=== PATIENT | female | born 1985 | race American Indian/Alaskan Native ===

== ENCOUNTER 2021-08-15 16:20 | Emergency (ER) | payer OTHER ==
--- NOTE | 2021-08-15 17:05 | Emergency Department Report ---
- General Stated Complaint: PG WITH FLU SX Time Seen by Provider: 08/15/21 17:02 - History of Present Illness Initial Comments: Patient presents with respiratory symptoms including cough congestion. She has had nasal congestion and cough. She has had subjective fevers. This is present for 1 day. Patient came in because she did not know what she could take because she is . She is 14 weeks gestation. She has had no problems with vaginal bleeding or spotting. She has no trauma. She has had no sick contacts. She has had no muscle aches or body aches. She states that she is just here because of nasal congestion. - Related Data Previous Rx's Medication Instructions Recorded Last Taken Type Ondansetron [Zofran ODT TAB] 8 mg PO Q8HR PRN #20 tab.rapdis 08/15/21 Unknown Rx Allergies Allergy/AdvReac Type Severity Reaction Status Date / Time No Known Allergies Allergy Unverified 08/15/21 17:01 ED Review of Systems ROS: Stated complaint: PG WITH FLU SX Other details as noted in HPI Comment: All other systems reviewed and negative Constitutional: fever Eyes: denies: eye pain ENT: throat pain Respiratory: cough Cardiovascular: denies: chest pain Endocrine: denies: unexplained weight loss Gastrointestinal: denies: abdominal pain Genitourinary: denies: dysuria Musculoskeletal: arthralgia, myalgia. denies: back pain Skin: denies: rash Neurological: denies: headache Hematological/Lymphatic: denies: easy bruising ED Past Medical Hx - Past Medical History Additional medical history: Current - Family History Family history: no significant - Medications Home Medications: Home Medications Medication Instructions Recorded Confirmed Last Taken Type Ondansetron [Zofran ODT TAB] 8 mg PO Q8HR PRN #20 tab.rapdis 08/15/21 Unknown Rx ED Physical Exam - General Limitations: No Limitations, Other General appearance: alert (Pulse ox noted and normal), in no apparent distress - Head Head exam: Present: atraumatic, normocephalic - Eye Eye exam: Present: normal appearance, EOMI - ENT ENT exam: Present: normal orophraynx, normal external ear exam - Neck Neck exam: Present: normal inspection. Absent: meningismus - Respiratory Respiratory exam: Present: normal lung sounds bilaterally. Absent: respiratory distress - Cardiovascular Cardiovascular Exam: Present: regular rate, normal rhythm - GI/Abdominal GI/Abdominal exam: Present: soft. Absent: tenderness - Extremities Exam Extremities exam: Present: normal capillary refill - Back Exam Back exam: Absent: CVA tenderness (R), CVA tenderness (L) - Neurological Exam Neurological exam: Present: alert, oriented X3, CN II-XII intact, normal gait - Psychiatric Psychiatric exam: Present: normal affect, normal mood - Skin Skin exam: Present: warm, dry ED Course Vital Signs 08/15/21 17:06 Temperature 98.3 F Pulse Rate 107 H Respiratory 20 Rate Blood Pressure 154/97 [Right] O2 Sat by Pulse 100 Oximetry - Reevaluation(s) Reevaluation #1: 08/15/21 18:28 Patient was discharged ED Medical Decision Making - Medical Decision Making Patient presents with upper respiratory symptoms. She has more sinus congestion and drainage. She has been told that she can take Benadryl [id number]. She can take Tylenol [id number]. There is no other medication that would really be safe for her current symptoms. Patient does not have adventitious breath sounds to suggest pneumonia. She has no urinary symptoms. She is previable regarding the . There would be no indication for monitoring. She does not have dependent edema. This is out of the range of 4 eclampsia. She certainly could have coronavirus, but that would not alter her current treatment. Critical Care Time: No Critical care attestation.: If time is entered above; I have spent that time in minutes in the direct care of this critically ill patient, excluding procedure time. ED Disposition Clinical Impression: Viral URI Disposition: HOME / SELF CARE / HOMELESS Is pt being admited?: No Condition: Stable Instructions: Viral Respiratory Infection, [id number] Additional Instructions: Use Tylenol for fever. Push fluids. Return for problems. Follow-up with your regular doctor and your [employer] for recheck. Use Benadryl [id number] for congestion. Prescriptions: Ondansetron [Zofran ODT TAB] 8 mg PO Q8HR PRN #20 tab.rapdis PRN Reason: Nausea Referrals: PRIMARY CARE, [Primary Care Provider] - 3-5 Days
[2021-08-15 17:07] VITALS: BP 154/97
== END 2021-08-16 17:14 | disposition home or self-care (01) ==
LOC: ED 16:20
DX: O99.512 Diseases of the respiratory system complicating pregnancy, second trimester (principal); J06.9 Acute upper respiratory infection, unspecified; Z3A.14 14 weeks gestation of pregnancy
CPT/HCPCS: 99282